=== PATIENT | female | born 1935 | race African-American/Black ===

== ENCOUNTER 2020-12-23 02:52 | Inpatient (IN) | payer OTHER ==
[~2020-12-23] VITALS: Ht 157.5 cm; Wt 60.7 kg
[2020-12-23 03:02] VITALS: BP 142/90
[2020-12-23] MEDS ORDERED: DOLOGEN CAPLET1 EACH PO ×2 (03:33→03:34)
[2020-12-23] MEDS ORDERED: VITAMIN C60 MG PO (03:35)
[2020-12-23] MEDS ORDERED: ELIQUIS2.5 MG PO (03:35)
[2020-12-23] MEDS ORDERED: AZELASTINE205.5 MCG/ NARES (03:36)
[2020-12-23] MEDS ORDERED: ASA81BEC PO (03:36)
[2020-12-23] MEDS ORDERED: LIPITOR40 MG PO (03:36)
[2020-12-23] MEDS ORDERED: ARTIFICIAL TEAR15 M4 EA. EYE (03:38)
[2020-12-23] MEDS ORDERED: VITAMIN D3250 MC1 PO (03:39)
[2020-12-23] MEDS ORDERED: DULCOLAX STOOL100 M1 PO (03:39)
[2020-12-23] MEDS ORDERED: SLOW FE142 MG PO (03:41)
[2020-12-23] MEDS ORDERED: FEBUXOSTAT PO (03:41)
[2020-12-23] MEDS ORDERED: METOLAZONE 2.52.5 M1 PO (03:42)
[2020-12-23] MEDS ORDERED: IMDUR 30 MG TAB30 M1 PO (03:42)
[2020-12-23] MEDS ORDERED: PROTONIX40 M3 PO (03:43)
[2020-12-23] MEDS ORDERED: SUPER THERAVIT1 EACH PO (03:43)
[2020-12-23] MEDS ORDERED: METOPROLOL SUCC25 M1 PO (03:43)
[2020-12-23] MEDS ORDERED: KLOR-CON M2020 MEQ PO (03:44)
[2020-12-23] MEDS ORDERED: MIRALAX119 GM PO (03:44)
[2020-12-23] MEDS ORDERED: METAMUCIL0.4 GM PO (03:45)
[2020-12-23] MEDS ORDERED: PREDNISONE 10 M10 MG PO (03:45)
[2020-12-23] MEDS ORDERED: TORSEMIDE10 MG PO (03:46)
[2020-12-23] MEDS ORDERED: TRAMADOL 50 MG50 MG PO (03:46)
[2020-12-23 03:58] LABS: ABSOLUTE MONOCYTES 0.3 thou/uL (0.0-1.2); ABSOLUTE NEUTROPHILS 4.8 thou/uL (1.6-8.1); BASOPHILS 0.5 %; EOSINOPHILS 0.3 %; HEMATOCRIT 24.6 % (37.0-47.0); HEMOGLOBIN 7.6 gm/dL (12.0-15.0); LYMPHOCYTES 16.5 %; MCHC 30.9 g/dL (28.0-37.0); MONOCYTES 5.6 %; NUCLEATED RBCS 0 /100WBC; PLATELET COUNT* 255 thou/uL (150-400); POLYS 77.1 %; RBC 2.62 mil/uL (4.20-5.00); RDW-CV 21.1 % (10.5-14.5); WBC 6.2 thou/uL (4.0-11.0)
[2020-12-23 04:11] LABS: ANION GAP 6 mmol/L (7-16); BUN 42 mg/dL (7-18); CALCIUM 8.9 mg/dL (8.5-10.1); CHLORIDE 110 mmol/L (98-107); CO2 26 mmol/L (21-32); CREATININE 2.2 mg/dL (0.6-1.3); GLUCOSE 99 mg/dL (70-99); INR 1.3; POTASSIUM 4.8 mmol/L (3.5-5.1); PROTIME 13.6 Seconds (9.20-11.50); SODIUM 142 mmol/L (136-145)
[2020-12-23 04:21] LABS: ALBUMIN 2.6 g/dL (3.4-5.0); ALKALINE PHOSPHATASE 61 U/L (46-116); NT-PRO BRAIN NAT PEPTIDE > 35000 pg/mL (<300); SGOT 46 U/L (15-37); SGPT 41 U/L (30-65); TOTAL BILIRUBIN 0.4 mg/dL (<0.1-1.0); TOTAL PROTEIN 5.9 g/dL (6.4-8.2)
[2020-12-23 05:06] LABS: URINE BILIRUBIN NEGATIVE (Negative); URINE BLOOD NEGATIVE (Negative); URINE CLARITY CLEAR; URINE COLOR YELLOW; URINE GLUCOSE-RANDOM NEGATIVE (Negative); URINE KETONES TRACE (Negative); URINE LEUKOCYTES-REFLEX NEGATIVE (Negative); URINE NITRITE-REFLEX NEGATIVE (Negative); URINE PROTEIN TRACE (Negative); URINE SPECIFIC GRAVITY 1.025 (1.005-1.030); URINE UROBILINOGEN 0.2 E.U./dl (0.2-1.0)
[2020-12-23 06:21] LABS: ANISOCYTOSIS 2+; PLATELET ESTIMATE DECREASED
[2020-12-23 06:22] LABS: HYPOCHROMASIA 2+; OVALOCYTES 1+
[2020-12-23 06:24] LABS: POIKILOCYTOSIS 1+; SCHISTOCYTES Occasional
[2020-12-23 08:11] VITALS: BP 128/59
[2020-12-23 08:42] VITALS: BP 131/55
[2020-12-23 11:16] VITALS: BP 112/49
[2020-12-23 14:34] VITALS: BP 108/51; BP 113/55; BP 99/51
[2020-12-23 21:48] VITALS: BP 120/54
[2020-12-24 00:22] VITALS: BP 135/68
[2020-12-24 04:28] VITALS: BP 130/64
[2020-12-24 08:00] VITALS: BP 137/53
[2020-12-24 08:40] LABS: HEMATOCRIT 30.1 % (37.0-47.0); MCH 29.7 pg (26.0-34.0); MCHC 32.6 g/dL (28.0-37.0); RBC 3.3 mil/uL (4.20-5.00); RDW-CV 18.8 % (10.5-14.5); WBC 5.8 thou/uL (4.0-11.0)
[2020-12-24 08:49] LABS: HEMOGLOBIN 9.8 gm/dL (12.0-15.0)
[2020-12-24 08:56] LABS: CALCIUM 8.8 mg/dL (8.5-10.1); POTASSIUM 3.9 mmol/L (3.5-5.1)
[2020-12-24 09:59] LABS: % SATURATION 21 % (20-39); IRON 46 ug/dL (50-175)
[2020-12-24 13:26] VITALS: BP 109/47
[2020-12-24 17:05] VITALS: BP 110/45
[2020-12-24 19:17] LABS: MAGNESIUM 2.1 mg/dL (1.8-2.4); POTASSIUM 4.1 mmol/L (3.5-5.1)
[2020-12-24 19:30] VITALS: BP 99/45
[2020-12-25] VITALS (7 sets, daily range): BP systolic 94–130; BP diastolic 40–59
[2020-12-25 05:48] LABS: HEMATOCRIT 29.2 % (37.0-47.0); HEMOGLOBIN 9.6 gm/dL (12.0-15.0); MCH 29.8 pg (26.0-34.0); MCHC 32.7 g/dL (28.0-37.0); MPV 9.1 fl. (7.2-11.1); NUCLEATED RBCS 0 /100WBC; PLATELET COUNT* 232 thou/uL (150-400); RBC 3.21 mil/uL (4.20-5.00); RDW-CV 18.8 % (10.5-14.5); WBC 6.1 thou/uL (4.0-11.0)
[2020-12-25 05:55] LABS: CALCIUM 8.2 mg/dL (8.5-10.1); CREATININE 2.4 mg/dL (0.6-1.3); POTASSIUM 3.6 mmol/L (3.5-5.1)
[2020-12-25 06:27] LABS: ABSOLUTE LYMPHOCYTES 1.2 thou/uL (0.8-5.3); ABSOLUTE NEUTROPHILS 4.9 thou/uL (1.6-8.1); ATYPICAL LYMPHS 5 %; PLATELET ESTIMATE ADEQUATE
--- NOTE | 2020-12-25 13:46 | EKG ---
[place] [address] ELECTROCARDIOGRAM REPORT Name: SHA GAR Room: [address] ADM IN [facility]#: [id number] Admission: 12/23/20 Attend Phys: Baltazar Bravo Discharge: Date of : 31 Date of Service: 12/23/20 0258 Report #: [id number] THIS REPORT FOR: //name// [facility] ED Test Date: 2020-12-23 Test Time: 02:58:51 Pat Name: SHA GAR Department: Room: [facility] Gender: F Bryologist: MICHELLE : 1935 Requested By: Jerrica Marques Order Number: [id number] MD: Iftikhar Bermeo Measurements Intervals Jenkins Rate: 82 P: 15 WI: 117 QRS: -29 QRSD: 129 T: 152 QT: 384 QTc: 449 Interpretive Statements Sinus rhythm Borderline short WI interval Left bundle branch block No previous ECG available for comparison Electronically Signed On 12-25-2020 13:46:30 CDT by Iftikhar Bermeo [email or web address] <ELECTRONICALLY SIGNED> By: Iftikhar Bermeo MD, [facility] 12/25/20 1346 0258 0258 Iftikhar Bermeo MD, [facility] /EPI
[2020-12-26 04:57] VITALS: BP 101/45
[2020-12-26 05:20] LABS: CALCIUM 8.2 mg/dL (8.5-10.1); CREATININE 2.4 mg/dL (0.6-1.3); POTASSIUM 3.7 mmol/L (3.5-5.1)
[2020-12-26 08:00] VITALS: BP 117/51
[2020-12-26 12:03] VITALS: BP 103/42
--- NOTE | 2020-12-26 13:35 | 2DMMODE ---
[place] [address] 2 D/M-MODE ECHOCARDIOGRAM Name: SHA GAR Room: [address] IN [facility]#: [id number] Admission: 12/23/20 Attend Phys: Baltazar Bravo Discharge: Date of : 31 Date of Service: 12/26/20 1335 Report #: [id number] THIS REPORT FOR: cc: Physician not on staff Physician not on staff Soren Jaimes MD [facility] ~ APPROVED REPORT Study performed: 12/26/2020 12:01:17 EXAM: Comprehensive 2D, Doppler, and color-flow Echocardiogram Patient Location: In-Patient Room #: [facility] Status: routine BSA: 1.62 HR: 64 bpm BP: 103/42 mmHg Rhythm: NSR Other Information Study Quality: Good Indications Congestive Heart Failure Dyspnea CAD 2D Dimensions IVSd: 11.41 (7-11mm) LVOT Diam: 19.37 (18-24mm) LVDd: 52.98 mm PWd: 9.29 (7-11mm) Ascending Ao: 29.22 (22-36mm) LVDs: 45.22 (25-40mm) Aortic Root: 27.52 mm Volumes Left Atrial Volume (Systole) LA ESV Index: 33.60 mL/m2 Aortic Valve AoV Peak Ismael.: 1.72 m/s AO Peak Gr.: 11.80 mmHg LVOT Max P.78 mmHg AO Mean Gr.: 5.94 mmHg LVOT Mean P.08 mmHg LVOT Max V: 0.83 m/s AO V2 VTI: 32.74 cm LVOT Mean V: 0.46 m/[place] [address] 2 D/M-MODE ECHOCARDIOGRAM Name: SHA GAR Room: [address] IN ..#: [id number] Admission: 12/23/20 Attend Phys: Baltazar Bravo Discharge: Date of : 31 Date of Service: 12/26/20 1335 Report #: [id number] TAY (VTI): 1.40 cm2 LVOT V1 VTI: 15.54 cm AI [place]: 1.85 m/s2 AI PHT: 506.62 ms Mitral Valve E/A Ratio: 0.76 MV Decel. Time: 138.82 ms MV E Max Ismael.: 0.76 m/s MV PHT: 40.26 ms MVA (PHT): 5.46 cm2 TDI E/Lateral E': 8.44 E/Medial E': 19.00 Medial E' Ismael.: 0.04 m/s Lateral E' Ismael.: 0.09 m/s Pulmonary Valve PV Peak Ismael.: 0.94 m/s PV Peak Gr.: 3.52 mmHg Tricuspid Valve RAP Estimate: 5.00 mmHg TR Peak Gr.: 25.73 mmHg RVSP: 30.00 mmHg PA Pressure: 30.00 mmHg Left Ventricle Left ventricle is mildly dilated. There is global hypokinesis with akinesis of the anterior wall and anteroseptal wall as well as apex. There is normal left ventricular wall thickness. Left ventricular systolic function is severely decreased. LVEF is 20-25%. Grade I - abnormal relaxation pattern. Right Ventricle The right ventricle is normal size. The right ventricular systolic function is normal. Atria Left atrium is moderately dilated. Right atrium is mildly dilated. Aortic Valve Mild aortic valve sclerosis. Mild aortic regurgitation. Mild aortic stenosis. Mitral Valve The mitral valve is normal in structure. Mild mitral regurgitation. No evidence of [place] [address] 2 D/M-MODE ECHOCARDIOGRAM Name: DINOSHA YAO Elio Room: [address]#: [id number] Admission: 12/23/20 Attend Phys: Baltazar Bravo Discharge: Date of : 31 Date of Service: 12/26/20 1335 Report #: [id number] Tricuspid Valve The tricuspid valve is normal in structure. Mild tricuspid regurgitation. The RVSP is 35-40 mmHg. Pulmonic Valve The pulmonary valve is normal in structure. Trace pulmonic regurgitation. Great Vessels The aortic root is normal in size. IVC is normal in size and collapses >50% with inspiration. Pericardium There is no pericardial effusion. Left pleural effusion. <Conclusion> Left ventricle is mildly dilated. There is normal left ventricular wall thickness. Left ventricular systolic function is severely decreased. LVEF is 20-25%. Grade I - abnormal relaxation pattern. There is global hypokinesis with akinesis of the anterior wall and anteroseptal wall as well as apex. Left atrium is moderately dilated. Right atrium is mildly dilated. Mild aortic valve sclerosis. Mild aortic regurgitation. Mild aortic stenosis. Mild mitral regurgitation. Mild tricuspid regurgitation. The RVSP is 35-40 mmHg. Trace pulmonic regurgitation. IVC is normal in size and collapses >50% with inspiration. Left pleural effusion. <ELECTRONICALLY SIGNED> By: Soren Jaimes MD, FACC 12/26/20 1335 1335 1335 Soren Jaimes MD, FACC /INF
[2020-12-26 14:04] VITALS: BP 103/42
--- NOTE | 2020-12-27 12:57 | D ---
[address] [address] DISCHARGE SUMMARY Name: SHA GAR Room: [address]#: [id number] Admission: 12/23/20 Attend Phys: Karlos Hess Discharge: 12/26/20 Date of : 31 Report #: [id number] THIS REPORT FOR: cc: Physician not on staff Physician not on staff Soren Jaimes MD [facility] ~ DOC #: [id number] cc: MD Soren Choi MD DATE OF DISCHARGE: 12/26/2020 DISCHARGE DIAGNOSES: 1. [id number] combined heart failure. 2. Ischemic cardiomyopathy. 3. Coronary artery disease. 4. Chronic renal insufficiency. 5. Hypertension. 6. Hyperlipidemia. 7. Remote history of DVTs, on chronic anticoagulation. PROCEDURES DURING HOSPITALIZATION: 1. Diuresis with IV diuretics. 2. Telemetry monitoring. 3. Inpatient cardiac care. HOSPITAL COURSE: The patient was initially seen in consultation on 12/24/2020 and noted to be in acute heart failure. Her symptoms were primarily dyspnea on exertion and shortness of breath at rest as well as orthopnea. The patient was not having any chest pain. There was no evidence of acute coronary syndrome. The patient responded promptly with IV Lasix drip. Her creatinine did bump from 2.0-2.4. Nephrology followed along with the patient. The patient's renal status otherwise remained stable. She had good urine output throughout hospitalization. By day #2, her significant shortness of breath and orthopnea had improved. She was diuresed approximately 5 kilograms. At the time of discharge, she was stable. DISCHARGE MEDICATIONS: Will include aspirin 81 mg daily, atorvastatin 40 mg daily, Colace 100 mg b.i.d., iron sulfate 162.5 mg daily, Imdur 30 mg daily, Protonix 40 mg daily, MiraLax 17 grams daily, potassium 20 mEq daily, prednisone 10 mg b.i.d., torsemide 10 mg p.o. b.i.d. DISPOSITION: The patient is returning to her home in [place], [place]. Soren Jaimes MD [facility] [address] DISCHARGE SUMMARY Name: SHA GAR Elio Room: [address]#: [id number] Admission: 12/23/20 Attend Phys: Karlos Hess Discharge: 12/26/20 Date of : 31 Report #: [id number] <ELECTRONICALLY SIGNED> By: Soren Jaimes MD, [facility] 12/27/20 1257 1217 51[facility] Jaimes MD, FACC /nt
== END 2020-12-26 15:00 | disposition home or self-care (01) | DRG 291 ==
LOC: M.ERS 02:52 → M.2W 05:10 → M.TBA-ER 05:10 → M.2W 08:13
PROVIDERS: Family Medicine; Internal Medicine Cardiovascular Disease; Internal Medicine Nephrology; Personal Emergency Response Attendant; Registered Nurse; ADMIT Internal Medicine; ATTEND Internal Medicine
PROC: 30233N1 Transfusion of Nonautologous Red Blood Cells into Peripheral Vein, Percutaneous Approach (ICD-10-PCS; principal; 2020-12-23)
DX: I13.0 Hypertensive heart and chronic kidney disease with heart failure and stage 1 through stage 4 chronic kidney disease, or unspecified chronic kidney disease (principal); J96.01 Acute respiratory failure with hypoxia; I50.43 Acute on chronic combined systolic (congestive) and diastolic (congestive) heart failure; I82.4Z1 Acute embolism and thrombosis of unspecified deep veins of right distal lower extremity; N18.4 Chronic kidney disease, stage 4 (severe); D64.9 Anemia, unspecified; K25.9 Gastric ulcer, unspecified as acute or chronic, without hemorrhage or perforation; I25.5 Ischemic cardiomyopathy; I25.10 Atherosclerotic heart disease of native coronary artery without angina pectoris; E78.5 Hyperlipidemia, unspecified; K64.9 Unspecified hemorrhoids; F03.90 Unspecified dementia, unspecified severity, without behavioral disturbance, psychotic disturbance, mood disturbance, and anxiety; Z20.822 Contact with and (suspected) exposure to COVID-19; Z79.01 Long term (current) use of anticoagulants; Z79.899 Other long term (current) drug therapy; Z88.1 Allergy status to other antibiotic agents; Z88.0 Allergy status to penicillin; Z88.2 Allergy status to sulfonamides; Z88.8 Allergy status to other drugs, medicaments and biological substances; Z91.018 Allergy to other foods; Z95.1 Presence of aortocoronary bypass graft; I25.2 Old myocardial infarction